=== PATIENT | male | born 1985 | race Caucasian/White ===

== ENCOUNTER → 2018-04-07 19:04 | Outpatient (CLI) | payer OTHER, SELFPAY | PROVIDERS: Family Provider Family Medicine; PCP Family Medicine; Visit Provider Physician Assistant Surgical | DX: J02.9 Acute pharyngitis, unspecified (principal) | CPT/HCPCS: 87081 ==

== ENCOUNTER 2018-08-07 09:43 | Day surgery (SDC) | payer OTHER, SELFPAY ==
[2018-08-07] VITALS (7 sets, daily range): BP systolic 90–139; BP diastolic 54–83; PULSE 61–73; RESP 14–16; TEMP 36.3–36.5; O2SAT 97–100; BMI 26.9
--- NOTE | 2018-08-07 | COLBX_PTH ---
PATIENT: BOYD CORMIER LOC: EN U#:[id number] AGE/SX: 33/M ROOM: RE08/07/[address]: Dr. Marcelo Lundy MD : 1985 BED: DIS: 08/07/2018 SPEC #: [id number] RECD: 08/07/18 14:31 STATUS: ONEAL GABRIELA #: [id number] MARY ELLEN: 08/07/18 00:[address]: Marcelo Lundy DEPT: SURGICAL PATHOLOGY RECD BY: Jeremy Maxwell ENTERED: 08/07/18 14:32 SP TYPE: COLON BX RADHA DR: Dr. Kenji Schmidt MD Tissues: A - COLON BIOPSY B - Sigmoid colon biopsy Procedures: Surgery Specimen Level IV HEADER OPERATION: Colonoscopy PRE-OP DIAGNOSIS: Left quadrant abdominal pain TISSUE SUBMITTED: A - Random colonic biopsy, B - Biopsy granulation tissue mid sigmoid diverticulum MICROSCOPIC DIAGNOSIS A. Colon, random biopsy: Fragments of colonic mucosa, no pathologic diagnosis. B. Granulation tissue mid sigmoid diverticulum, biopsy: Fragments of colonic mucosa, no pathologic diagnosis. ALTHEA:amos 08/10/18 MICROSCOPIC DESCRIPTION Slides are reviewed. GROSS DESCRIPTION A - Received in fixative is one container labeled with the patient's name and designated random colonic biopsy. The specimen consists of multiple irregular fragments of light louis soft tissue that in aggregate measure 1 x 0.3 x 0.1 cm. The specimen is totally submitted in one cassette. B - Received in fixative is one container labeled with the patient's name and designated biopsy granulation tissue mid sigmoid diverticulum. The specimen consists of two irregular fragments of light louis soft tissue that in aggregate measure 0.5 x 0.2 x 0.1 cm. The specimen is totally submitted in one cassette. / ALTHEA:amos 08/07/18 TC:4 CPT: 29636 x2
--- NOTE | 2018-08-07 12:05 | OP.ENDO_ITS ---
Patient Name: Stanton Mustafa Procedure Date: 08/07/2018 11:32 AM Date of : 1985 Age: 33 Procedure: Colonoscopy Indications: Abdominal pain in the left lower quadrant Providers: Marcelo Lundy MD Medicines: Midazolam 5 mg IV, Meperidine 150 mg IV Patient Profile: Last Colonoscopy: none. The patient's first colonoscopy is today. Complications: No immediate complications. Procedure: Pre-Anesthesia Assessment: - Prior to the procedure, a History and Physical was performed, and patient medications and allergies were reviewed. The patient's tolerance of previous anesthesia was also reviewed. The risks and benefits of the procedure and the sedation options and risks were discussed with the patient. All questions were answered, and informed consent was obtained. Prior Anticoagulants: The patient has taken no previous anticoagulant or antiplatelet agents. ASA Grade Assessment: I - A normal, healthy patient. After reviewing the risks and benefits, the patient was deemed in satisfactory condition to undergo the procedure. After I obtained informed consent, the scope was passed under direct vision. Throughout the procedure, the patient's blood pressure, pulse, and oxygen saturations were monitored continuously. The colonoscope was introduced through the anus and advanced to the cecum, identified by appendiceal orifice and ileocecal valve. The colonoscopy was performed without difficulty. The patient tolerated the procedure well. The quality of the bowel preparation was good. The ileocecal valve was photographed. Moderate Sedation: Moderate (conscious) sedation was personally administered by the endoscopist. The following parameters were monitored: oxygen saturation, heart rate, blood pressure, and response to care. Total physician intraservice time was 15 minutes. Scope In: 11:42:57 AM Scope Withdrawal Time 0 hours 10 minutes 10 seconds Scope Out: 11:58:23 AM Total Procedure Duration Time 0 hours 15 minutes 26 seconds Findings: The perianal and digital rectal examinations were normal. Multiple diverticula were found in the sigmoid colon and descending colon. Biopsies were taken with a cold forceps for histology. The exam was otherwise normal throughout the examined colon. Impression: - Diverticulosis in the sigmoid colon and in the descending colon. Biopsied. Focus of acute diverticulitis noted in the sigmoid photographed and biopsies Random colonic biopsies obtained because of family history Crohn's disease in his father. Recommendation: - Discharge patient to home. - Resume previous diet. - Continue present medications. - Telephone my office for pathology results in 1 week. - Repeat colonoscopy because the bowel preparation was suboptimal. - Repeat colonoscopy in 10 years for screening purposes. Procedure Code(s): --- Professional --- 95397, Colonoscopy, flexible; with biopsy, single or multiple 50373, 59, Moderate sedation services provided by the same physician or other qualified health health care manager performing the diagnostic or therapeutic service that the sedation supports, requiring the presence of an independent trained observer to assist in the monitoring of the patient's level of consciousness and physiological status; initial 15 minutes of intraservice time, patient age 5 years or older Diagnosis Code(s): --- Professional --- R10.32, Left lower quadrant pain K57.30, Diverticulosis of large intestine without perforation or abscess without bleeding CPT copyright 2017 [employer]. All rights reserved. The codes documented in this report are preliminary and upon infirmary attendant review may be revised to meet current compliance requirements. Marcelo Lundy MD 08/07/2018 12:04:41 PM This report has been signed electronically. Number of Addenda: 0 Note Initiated On: 08/07/2018 11:32 AM
== END 2018-08-07 12:50 | disposition home or self-care (01) ==
LOC: EN 09:47 → AC 09:49
PROVIDERS: Family Provider Family Medicine; PCP Family Medicine; Referring Provider Surgery; Visit Provider Surgery
PROC: 0DJD8ZZ Inspection of Lower Intestinal Tract, Via Natural or Artificial Opening Endoscopic (ICD-10-PCS; CPT 45378; principal; 2018-08-07 10:40)
DX: K57.30 Diverticulosis of large intestine without perforation or abscess without bleeding (principal); R10.32 Left lower quadrant pain; Z83.79 Family history of other diseases of the digestive system
CPT/HCPCS: 45380; 88305; 99152; 99153; J7120

== ENCOUNTER → 2023-01-04 | Outpatient (CLI) | payer OTHER, SELFPAY ==
--- NOTE | 2023-01-04 06:40 | MRI_ITS ---
INDICATION: RUPTURED ACHILLES TENDON EXAMINATION: MRI - RIGHT MR Ankle W/O Contrast TECHNIQUE: Multiplanar and multisequence MR images of the ankle. IV Contrast Dosage and Agent: None. COMPARISON: None. FINDINGS: BONE: Talar dome intact. No fracture or marrow edema. No osteochondral lesion. JOINT: Articular cartilage intact. Moderate tibiotalar and subtalar joint effusions. LIGAMENTS: The syndesmotic ligaments, lateral collateral ligaments, and medial collateral ligaments are intact. TENDONS: Mild tenosynovitis distal peroneus brevis lungs tendons. The distal tibialis posterior demonstrates moderate tendinopathy and tenosynovitis. Distal flexor digitorum and flexor hallucis tendons immediately distal to the medial malleolus demonstrate mild tenosynovitis. There is a complete tear of the Achilles at the musculotendinous junction. Gap between musculature of the gastrocnemius and the Achilles tendon measures 1.14 cm craniocaudal. There is a moderate degree of hemorrhage in this gap. MUSCLES: Normal bulk and signal. MISCELLANEOUS: Mild proximal plantar fasciitis. Normal fat in the sinus tarsi. OTHER SOFT TISSUES: Unremarkable. MRI/Lower Ext Joint Only (Routine) IMPRESSION: Complete tear of the Achilles tendon detailed above. Mild tenosynovitis of the distal peroneus brevis and longus tendon, moderate tendinopathy and tenosynovitis of the distal tibialis posterior and mild tenosynovitis of the flexor digitorum and flexor hallux tendons distal to the medial malleolus. Moderate tibiotalar and subtalar joint effusions. Proximal plantar fasciitis. Electronically Signed: Deangelo Garcia MD, UVALDO at 8:42 EST ,
== END | disposition home or self-care (01) ==
PROVIDERS: PCP Family Medicine
DX: S86.011A Strain of right Achilles tendon, initial encounter (principal)
CPT/HCPCS: 73721

== ENCOUNTER → 2023-09-05 | Outpatient (CLI) | payer OTHER, SELFPAY ==
--- NOTE | 2023-09-05 09:15 | RAD_ITS ---
STUDY: X-RAY - ESOPHAGUS (BARIUM SWALLOW) WITH FLUOROSCOPY REASON FOR EXAM: Male, 38 years old. DYSPHAGIA, UNSPECIFIED TECHNIQUE: 16 view(s) of the esophagus were obtained following swallowing of barium. FLUOROSCOPY TIME (if supplied): (50 seconds) minutes/seconds COMPARISON: None. FINDINGS: There is no demonstrated esophageal foreign body. There is no demonstrated stricture or mucosal abnormality. Normal gastroesophageal junction, without a demonstrated hiatal hernia. The patient ingested a 12 mm tablet of barium without any difficulty. Normal visualized aortic arch and descending thoracic aorta. Normal visualized pulmonary parenchyma. Normal visualized osseous structures of the thorax. RAD/Esophagus Dual Contrast IMPRESSION: Normal plain film x-ray examination (barium swallow) of the esophagus. Electronically Signed: Bhargav Melendrez MD at 14:28 EDT ,
== END | disposition home or self-care (01) ==
LOC: RAD 09:07
PROVIDERS: PCP Family Medicine; Referring Provider Family Medicine; Visit Provider Family Medicine
DX: R13.10 Dysphagia, unspecified (principal)
CPT/HCPCS: 74220; 74221

== ENCOUNTER 2023-09-24 12:33 | Day surgery (SDC) | payer OTHER, SELFPAY ==
[2023-09-24] VITALS (7 sets, daily range): BP systolic 106–144; BP diastolic 75–95; PULSE 64–80; RESP 14–17; TEMP 36.2–37.3; O2SAT 94–99; BMI 28.6
[2023-09-24] MEDS: Lactated Ringers 1,000 ML 15 ML IV (12:48)
--- NOTE | 2023-09-24 14:30 | EGD_PTH ---
PATIENT: BOYD CORMIER LOC: [facility] [place] U#:[id number] AGE/SX: 38/M ROOM: RE09/24/[address]: Dr. Marcelo Lundy MD : 1985 BED: DIS: 09/24/2023 SPEC #: [id number] RECD: 09/25/23 07:45 STATUS: ONEAL GABIRELA #: [id number] MARY ELLEN: 09/24/23 14:[address]: Marcelo Lundy DEPT: SURGICAL PATHOLOGY RECD BY: Melissa Loredo ENTERED: 09/25/23 07:45 SP TYPE: EGD BIOPSY OTHR DR: MD Kenji Nair MD Tissues: A - Duodenum, NOS B - Gastric mucous membrane C - Esophageal mucous membrane Procedures: Special Stain Group II Surgery Specimen Level IV Alcian Blue/PAS (control) HEADER OPERATION: EGD with dilation and biopsy PRE-OP DIAGNOSIS: Dysphagia TISSUE SUBMITTED: A - Duodenum biopsy, B - Antrum biopsy, C - EG junction biopsy MICROSCOPIC DIAGNOSIS A. Duodenum, biopsy: No pathologic change. B. Gastric antrum, biopsy: Chronic gastritis. See comment. C. Gastroesophageal junction, biopsy: Mild chronic inflammation. Focal changes of reflux. No evidence of goblet cell metaplasia. See comment. AM:amos 09/26/2023 COMMENT B. The results of immunohistochemistry for Helicobacter pylori will be reported separately ([id number]). C. Alcian blue/PAS stain with matched control supports the above diagnosis. MICROSCOPIC DESCRIPTION Slides are reviewed. GROSS DESCRIPTION A - Received in fixative is one container labeled with the patient's name and designated duodenal biopsy. The specimen consists of two irregular fragments of light louis soft tissue that in aggregate measure 0.5 x 0.3 x 0.1 cm. The specimen is totally submitted in one cassette. B - Received in fixative is one container labeled with the patient's name and designated antrum biopsy. The specimen consists of one irregular fragment of light louis soft tissue that measures 0.6 x 0.3 x 0.1 cm. The specimen is totally submitted in one cassette. C - Received in fixative is one container labeled with the patient's name and designated EG junction biopsy. The specimen consists of multiple irregular fragments of light louis soft tissue that in aggregate measure 1.0 x 0.3 x 0.1 cm. The specimen is totally submitted in one cassette. / AM:amos 09/25/2023 TC:3 CPT: 46546 x3, 99674
--- NOTE | 2023-09-24 14:30 | IMM_PTH ---
PATIENT: BOYD CORMIER LOC: [facility] [place] U#:[id number] AGE/SX: 38/M ROOM: RE09/24/[address]: Dr. Marcelo Lundy MD : 1985 BED: DIS: 09/24/2023 SPEC #: [id number] RECD: 09/25/23 14:50 STATUS: ONEAL REQ #: [id number] MARY ELLEN: 09/24/23 14:[address]: Marcelo Lundy DEPT: IMMUNOHISTOCHEMISTRY RECD BY: Janelle Vinson ENTERED: 09/25/23 14:50 SP TYPE: IMMUNO OTHR DR: MD Kenji Nair MD Tissues: B - Stomach, NOS Procedures: H Pylori (initial) PHYSICIAN & INSTITUTION [place] [address] SPECIMEN INFORMATION: Tissue Source: B - Antrum Clinical Info: Dysphagia Specimen Number: [id number] CPT code: 81146 METHODOLOGY: Deparaffinized sections of prefer/formalin-fixed tissue or PAP/DQ stained slides are incubated with monoclonal/polyclonal antibodies/oligonucleotide probes. Localization is made via biotin free immunoperoxidase method. Appropriate controls are performed and reacted as expected. Results on target cell population are indicated in the following table: RESULTS: ANTIBODY / CLONE RESULT Block B H Pylori (polyclonal) negative These tests were developed and their performance characteristics determined by [facility]. They may not have been cleared or approved by the U.S. Food and Drug Administration. The FDA has determined that such clearance or approval is not necessary. The above immunohistochemical/dualISH markers are ordered and reviewed by the Pathologist. INTERPRETATION: B. Gastric antrum, biopsy: Negative for Helicobacter pylori organisms. AM:amos 09/26/2023
--- NOTE | 2023-09-24 14:32 | HP.PCM_ITS ---
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 Is patient in pain?: No Allergies No Known Allergies Allergy (Verified 09/22/23 07:39) Medications levocetirizine 5 mg tablet (Xyzal) 5 mg PO QPM 09/22/23 [History Confirmed 09/22/23] omeprazole 40 mg capsule,delayed release 40 mg PO DAILY 09/22/23 [History Confirmed 09/22/23] PFSH Medical History (Updated 09/22/23 @ 07:37 by Keira Yeager) Abdominal pain Acid reflux Dysphagia Seasonal allergies Severe headache Surgical History History of colonoscopy (~08/07/18) History of repair of ACL History of varicocele Family History (Updated 09/22/23 @ 07:38 by Keira Yeager) Mother HypertensionGrandfather Cancer Esophageal Cancer Social History Smoking Status: Never smoker second hand exposure: No alcohol intake: never substance use type: does not use caffeine: No what type of physical activity do you participate in: none frequency: does not exercise HPI HPI HPI: 38-year-old gentleman is being referred by Dr Kenji Duckworth for surgical consultation regarding esophageal dysphagia and a written copy of my surgical consult recommendations will return to him. Patient reports problems for at least 2 years. He is noting that food intermittently becomes stuck. This only occurs with solids but occurs 2-3 times per week. He was initiated on om eprazole therapy 40 mg orally daily. On September 05, 2023 at the [facility] esophagram was obtained. This was felt to be normal and I have reviewed the images. It is stated that the barium tablet passed without difficulty. States over the past couple years he has had 4 severe episodes of food getting stuck. One time it was quite uncomfortable and took several minutes before js ared. That happened to be hashbrowns at [facility]. He does not use tobacco. 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 His grandfather had esophageal cancer. He otherwise does not make any comment regarding heartburn or reflux symptoms. He does have intermittent left lower quadrant pain. I assisted him in the past with a clinical diagnosis of sigmoid diverticulitis. He is not taking any fiber supplement at this time. Family history is not negative for colon polyps or colon cancer ROS General General: No weight change, appetite, fatigue, colon cancer, breast cancer or weakness HEENT HEENT: Yes difficulty swallowing; No eye injury, eye surgery, swollen glands or hoarseness Endo Endocrine: No thyroid disease, diabetes mellitus, thyroid cancer, Hair loss, heat intolerance or cold intolerance Skin Skin: No rash or changing moles Breast Breast: No left breast lump, right breast lump, nipple discharge, breast pain, abnormal mammogram, abnormal US or breast enlargement Musc Musculoskeletal: No back problems, arthritis, rheumatoid arthritis, gout or joint pain Cardio Cardiovascular: No murmur, pacemaker, heart disease, atrial fibrillation, high blood pressure, heart attack, heart stent, palpitations, shortness of breat with exertion or chest pain Psych Psychiatric: No depression, anxiety or hearing voices Resp Respiratory: No shortness of breath, No sleep apnea, No cough, No COPD, No asthma, No emphysema and No wheezing Gastro Gastrointestinal: No abdominal pain, No nausea or vomiting, No diarrhea, No constipation, No blood in stool, Yes acid reflux, No hemorrhoids, No ulcers, No gallbladder problem and No black,tarry stools Alex Hematologic: No blood thinners, No blood disorders, No bleeding, No anemia and No blood clots Neuro Neurologic: No system reviewed and no additional complaints, except as documented, No as per HPI, No abnormal gait, No abnormal hearing, No abnormal movements, No abnormal speech, No behavioral changes, No burning sensations, No confusion, No convulsions, No disequilibrium, No dizziness, No localized weaknes s, No frequent falls, No headache(s), No lack of coordination, No loss of vision, No memory loss, No numbness, No other visual disturbances, No radicular pain, No restless legs, No sensory deficit, No syncope, No tingling, No tremor(s), No weakness and No other Exam Const General: cooperative, healthy appearing, comfortable and no acute distress [facility] [place] Head: normal to inspection Eyes General: appearance normal, both eyes and all related structures Neck Neck: normal visual inspection Chest Chest palpation & inspection: normal inspection of the chest Resp Effort & Inspection: normal respiratory effort Auscultation: clear to auscultation bilaterally Cardio Rate: regular rate Rhythm: regular rhythm GI Inspection: normal to inspection Palpation: soft and no hepatosplenomegaly Musc Cervical Spine: normal cervical lordosis Skin General: no rashes or lesions noted Neuro General: patient alert and patient awake Extrem General: no calf tenderness Psych Appearance: grossly normal Assessment and Plan Assessment and Plan (1) Dysphagia: Qualifiers: Dysphagia type: esophageal phase Qualified Code(s): R13.19 - Other dysphagia Plan: 38-year-old gentleman with no extensive allergy history with esophageal dysphagia consistent with intermittent obstruction. Normal esophagram and I have personally reviewed those images. 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 This would put a lot of pressure on the EG junction. I recommend to him an esophagogastroduodenoscopy with possible biopsy or polypectomy and possible dilatation if indicated. I have discussed the technique, benefit, risk, alternatives. He has had an opportunity ask and have questions answered. We will schedule and proceed at his discretion. I appreciate the ongoing opportunity of assisting with the surgical care. We additionally discussed that if the upper endoscopy and biopsies were completely unremarkable that he might be a candidate for esophageal manometry. We will await the results of the upper scope. Copy: Dr Kenji Lundy M.D., F.A.C.S. I have examined the patient and the H&P has been reviewed. There are no clinical changes since date of exam. Marcelo Lundy M.D., F.A.C.S.
--- NOTE | 2023-09-24 14:56 | OP.CCLET_ITS ---
09/24/2023 Kenji Duckworth [address] [place] [address] Re : Upper GI endoscopy procedure for Stanton Mustafa Dear Dr. Duckworth This procedure was performed on Sunday, September 24, 2023. My impressions and recommendations are as follows: Impressions : - Reflux esophagitis with no bleeding. Biopsied. - Mild Schatzki ring. Dilated. - Small hiatal hernia. - Erythematous mucosa in the antrum. Biopsied. - Normal examined duodenum. Biopsied. Recommendations : - Discharge patient to home. - Resume previous diet. - Continue present medications. - Telephone my office for pathology results in 1 week. My findings are described in the full procedure note, which is enclosed. If I can be of further assistance, please feel free to contact me at Doctor phone number(s): Work: . Sincerely, Marcelo Lundy MD 09/24/2023 2:55:55 PM This report has been signed electronically.
--- NOTE | 2023-09-24 14:56 | OP.EGD_ITS ---
Patient Name: Stanton Mustafa Procedure Date: 09/24/2023 2:18 PM Date of : 1985 Age: 38 Procedure: Upper GI endoscopy Indications: Dysphagia Providers: Marcelo Lundy MD Medicines: See the Anesthesia note for documentation of the administered medications Complications: No immediate complications. Procedure: Pre-Anesthesia Assessment: - Prior to the procedure, a History and Physical was performed, and patient medications and allergies were reviewed. The patient's tolerance of previous anesthesia was also reviewed. The risks and benefits of the procedure and the sedation options and risks were discussed with the patient. All questions were answered, and informed consent was obtained. Prior Anticoagulants: The patient has taken no anticoagulant or antiplatelet agents. ASA Grade Assessment: II - A patient with mild systemic disease. After reviewing the risks and benefits, the patient was deemed in satisfactory condition to undergo the procedure. After obtaining informed consent, the endoscope was passed under direct vision. Throughout the procedure, the patient's blood pressure, pulse, and oxygen saturations were monitored continuously. The gastroscope was introduced through the mouth, and advanced to the second part of duodenum. The upper GI endoscopy was accomplished without difficulty. The patient tolerated the procedure well. Scope In: 2:36:41 PM Scope Out: 2:49:08 PM Total Procedure Duration Time 0 hours 12 minutes 27 seconds Findings: Esophagitis with no bleeding was found 41 cm from the incisors. Biopsies were taken with a cold forceps for histology. A mild Schatzki ring was found at the gastroesophageal junction. The scope was withdrawn. Dilation was performed with a Cohn dilator with no resistance at 54 Fr. The dilation site was examined following endoscope reinsertion and showed complete resolution of luminal narrowing. Estimated blood loss was minimal. A small hiatal hernia was present. Diffuse mildly erythematous mucosa without bleeding was found in the gastric antrum. Biopsies were taken with a cold forceps for histology. The examined duodenum was normal. Biopsies were taken with a cold forceps for histology. Impression: - Reflux esophagitis with no bleeding. Biopsied. - Mild Schatzki ring. Dilated. - Small hiatal hernia. - Erythematous mucosa in the antrum. Biopsied. - Normal examined duodenum. Biopsied. Recommendation: - Discharge patient to home. - Resume previous diet. - Continue present medications. - Telephone my office for pathology results in 1 week. Procedure Code(s): --- Professional --- 10671, Esophagogastroduodenoscopy, flexible, transoral; with biopsy, single or multiple 07748, Dilation of esophagus, by unguided sound or bougie, single or multiple passes Diagnosis Code(s): --- Professional --- K21.00, Gastro-esophageal reflux disease with esophagitis, without bleeding K22.2, Esophageal obstruction K44.9, Diaphragmatic hernia without obstruction or gangrene K31.89, Other diseases of stomach and duodenum R13.10, Dysphagia, unspecified CPT copyright 2021 [employer]. All rights reserved. The codes documented in this report are preliminary and upon crm marketing specialist review may be revised to meet current compliance requirements. Marcelo Lundy MD 09/24/2023 2:55:55 PM This report has been signed electronically. Number of Addenda: 0 Note Initiated On: 09/24/2023 2:18 PM
== END 2023-09-24 15:39 | disposition home or self-care (01) ==
LOC: SDC 12:34 → AC 12:35
PROVIDERS: PCP Family Medicine; Referring Provider Family Medicine; Visit Provider Surgery
PROC: 0DJ08ZZ Inspection of Upper Intestinal Tract, Via Natural or Artificial Opening Endoscopic (ICD-10-PCS; CPT 43235; principal; 2023-09-24 14:25)
DX: K29.50 Unspecified chronic gastritis without bleeding (principal); K22.2 Esophageal obstruction; K44.9 Diaphragmatic hernia without obstruction or gangrene; R13.10 Dysphagia, unspecified; K21.00 Gastro-esophageal reflux disease with esophagitis, without bleeding; K31.89 Other diseases of stomach and duodenum; Z79.899 Other long term (current) drug therapy; Z80.0 Family history of malignant neoplasm of digestive organs
CPT/HCPCS: 43239; 43450; 88305; 88313; 88342; J7120; C1769; J2405

== ENCOUNTER → 2024-10-06 | Outpatient (CLI) | payer OTHER, SELFPAY ==
[2024-10-06 10:37] LABS: Absolute Lymphocyte Count 1.78 X10^3/uL (0.83-4.51); Absolute Neutrophil Count 4.2 X10^3/uL (2.0-7.7); Basophil# 0.04 X10^3/uL; Basophil% 0.6 % (0-1); Eosinophil# 0.11 X10^3/uL; Eosinophils% 1.7 % (0-5); Hematocrit 44.7 % (40-54); Hemoglobin 15.1 g/dL (13.0-16.5); Lymphocyte # 1.78 X10^3/ul (0.83-4.51); Mean Corp Hgb Conc 33.8 g/dL (32-36); Mean Corpuscular Hgb 30.4 pg (27.0-32.0); Mean Corpuscular Volume 89.9 fL (80-94); Mean Platelet Vol. 12.4 fl (6.2-12.0); Monocyte# 0.48 X10^3/uL; Monocyte% 7.3 % (0-10); NRBC Flagged by Analyzer 0 % (0-5); Neutrophil # 4.17 X10^3/uL (2.7-7.7); Neutrophil % 63.1 % (47-70); Platelet Count 201 K/mm3 (150-450); RBC Distribution Width CV 12.2 % (11.6-14.6); RBC Distribution Width SD 40.1 fl (35.1-43.9); Red Blood Count 4.97 M/mm3 (4.6-6.2); White Blood Count 6.6 K/mm3 (4.4-11.0)
[2024-10-06 11:01] LABS: ALB/GLOB Ratio 1.3 RATIO (0.9-2.4); AST(SGOT) 23 U/L (15-37); Alanine Aminotransfer ALT/SGPT 37 U/L (16-61); Alkaline Phosphatase 82 U/L (45-117); Anion Gap 4 (5-15); BUN 10 mg/dL (7-18); BUN/Creat Ratio 9.2 RATIO (10-20); Chloride 110 mmol/L (98-107); Creatinine, Serum 1.09 mg/dL (0.70-1.30); EST Glomerular Filtration Rate 79 mL/min (>60); Est Glom Filt Rate - Afr Amer 96 mL/min (>60); Globulin 3.1 g/dL (2.2-4.2); Glucose 131 mg/dL (74-106); Potassium 4.1 mmol/L (3.5-5.1); Protein, Total 7.1 g/dL (6.4-8.2); Sodium Level 141 mmol/L (136-145)
[2024-10-08 13:08] LABS: Hemoglobin A1c 5.6 % (3.8-5.6)
== END | disposition home or self-care (01) ==
LOC: MFPLAB 09:24
PROVIDERS: PCP Family Medicine; Visit Provider Family Medicine
DX: K21.9 Gastro-esophageal reflux disease without esophagitis (principal); R73.09 Other abnormal glucose
CPT/HCPCS: 36415; 80053; 83036; 85025

== ENCOUNTER → 2025-08-12 | Outpatient (CLI) | payer OTHER, SELFPAY ==
--- NOTE | 2025-08-12 15:56 | CT_ITS ---
PROCEDURE: ABDOMEN/PELVIS WITH CONTRAST 08/12/2025 REASON FOR EXAM: DIVERTICULITS TECHNIQUE: Procedure Code: [id number] Modality: CT Procedure: ABDOMEN/PELVIS WITH CONTRAST Coronal and Sagittal reconstruction series were provided. CONTRAST: Isovue-300 VOLUME: 100 mL One or more dose reduction techniques were used (e.g., Automated exposure control, adjustment of the mA and/or kV according to patient size, use of iterative reconstruction technique. RADIATION DOSE SUMMARY: CTDlvol: 13.08 mGy DLP: 724 mGycm COMPARISON: None FINDINGS: Lung bases: Bibasilar atelectasis. Liver: Diffuse hepatic steatosis. Gallbladder: Gallbladder is distended with sludge. Spleen: Spleen measures 14 cm. Pancreas: Normal size without evidence of mass surrounding inflammation or ductal dilation. Adrenals: Unremarkable adrenals Kidneys: Normal renal sizes. No hydronephrosis. Bladder: Bladder is distended with urine. Reproductive Organs: Prostate measures 5.3 x 2.8 cm with nonspecific calcification. Bowel: There is extensive infiltration and surrounding stranding along sigmoid colon diverticula. Findings are concerning for underlying acute diverticulitis. Additionally there are multiple other partly calcified diverticula are also visualized. There are small foci of air surrounding this infiltration (series 601/50). Oral contrast is seen transversing through multiple bowel loops. Appendix: The appendix is not identified. There is no inflammatory process identified in the right lower quadrant to suggest appendicitis. Lymph nodes: Multiple scattered mesenteric, inguinal and pelvic lymph nodes. Vasculature: The abdominal aorta and IVC are normal. Peritoneum / Retroperitoneum: Extensive soft tissue induration and infiltration around sigmoid colon with small foci of air visualized within these infiltrations. Bones: Visualized bones are unremarkable. CT/Abdomen/Pelvis WITH Contrast IMPRESSION: There is extensive infiltration and surrounding stranding along sigmoid colon i nflamed diverticula. Findings are concerning for acute diverticulitis. Furthermore there are small foci of air surrounding this infiltration findings are concerning for micro perforation in this region. Red Alert: DLP The critical findings in the findings and impression above were relayed directl y by me to lucas Ramirez tech to on 08/12/2025 at 7:01 pm with readback verification. Who took message for . Reading Location: [id number]
[2025-08-12 19:25] LABS: Hematocrit 47.4 % (40-54); Hemoglobin 16.4 g/dL (13.0-16.5); Immature Granulocytes Count 0.070 X10^3/uL (0.0-0.0); Mean Corp Hgb Conc 34.6 g/dL (32-36); Mean Corpuscular Volume 90.3 fL (80-94); Mean Platelet Vol. 13.2 fl (6.2-12.0); NRBC Flagged by Analyzer 0 % (0-5); Platelet Count 153 K/mm3 (150-450); RBC Distribution Width CV 12.4 % (11.6-14.6); RBC Distribution Width SD 41.0 fl (35.1-43.9); Red Blood Count 5.25 M/mm3 (4.6-6.2); White Blood Count 16.0 K/mm3 (4.4-11.0)
[2025-08-12 19:32] LABS: AST(SGOT) 45 U/L (<=37); Alanine Aminotransfer ALT/SGPT 64 U/L (<=46); Albumin, Serum 4.5 g/dL (3.5-5.0); Alkaline Phosphatase 99 U/L (40-129); Anion Gap 14 (5-15); BUN 10 mg/dL (4-19); BUN/Creat Ratio 8.8 RATIO (10-20); Calcium,Total 9.5 mg/dL (7.6-11.0); Carbon Dioxide 26.2 mmol/L (21.0-32.0); Chloride 98 mmol/L (98-108); Globulin 3.0 g/dL (2.2-4.2); Glucose 116 mg/dL (70-99); Potassium 4.2 mmol/L (3.3-5.1)
== END | disposition home or self-care (01) ==
PROVIDERS: PCP Family Medicine; Referring Provider Family Medicine; Visit Provider Family Medicine
DX: K57.92 Diverticulitis of intestine, part unspecified, without perforation or abscess without bleeding (principal)
CPT/HCPCS: 36415; 74177; 80053; 85025; Q9967